=== PATIENT | female | born 1995 | race Two or more races ===

== ENCOUNTER 2019-05-05 09:51 | Outpatient (CLI) | payer OTHER | END 2019-05-05 10:01 | disposition home or self-care (01) | LOC: LAB 09:51 | DX: Z13.6 Encounter for screening for cardiovascular disorders (principal); Z00.00 Encounter for general adult medical examination without abnormal findings ==

== ENCOUNTER 2019-05-15 13:49 | Outpatient (CLI) | payer OTHER | END 2019-05-15 13:55 | disposition home or self-care (01) | LOC: LAB 13:49 | DX: D69.6 Thrombocytopenia, unspecified (principal) ==

== ENCOUNTER 2019-08-20 23:14 | Emergency (ER) | payer OTHER ==
[~2019-08-20] VITALS: Ht 170.2 cm; Wt 57.6 kg
[2019-08-21] MEDS ORDERED: DOLOGESIC 500-1 EACH PO (04:50)
[2019-08-21] MEDS ORDERED: LEVSIN/SL0.125 MG SL (04:50)
== END 2019-08-21 04:59 | disposition home or self-care (01) ==
LOC: ER 23:14
DX: R10.33 Periumbilical pain (principal); M94.0 Chondrocostal junction syndrome [Tietze]

== ENCOUNTER 2020-03-29 07:10 | Emergency (ER) | payer OTHER ==
[~2020-03-29] VITALS: Ht 152.4 cm; Wt 55.3 kg
[~2020-03-29 07:10] MED LIST: DOLOGESIC 500-1 EACH PO; LEVSIN/SL0.125 MG SL
[2020-03-29] MEDS ORDERED: PEPCID AC20 MG PO (11:43)
[2020-03-29] MEDS ORDERED: ZITHROMAX500 MG PO (11:43)
[2020-03-29] MEDS ORDERED: INTESTINEX680 M1 PO (11:43)
== END 2020-03-29 13:17 | disposition home or self-care (01) ==
LOC: ER 07:10
DX: R19.7 Diarrhea, unspecified (principal); B96.0 Mycoplasma pneumoniae [M. pneumoniae] as the cause of diseases classified elsewhere; Z03.818 Encounter for observation for suspected exposure to other biological agents ruled out

== ENCOUNTER 2023-09-24 10:20 | Outpatient (CLI) | payer OTHER ==
[~2023-09-24 10:20] MED LIST changes: +INTESTINEX680 M1 PO; +PEPCID AC20 MG PO; +ZITHROMAX500 MG PO
[2023-09-24 11:05] LABS: HEMATOCRIT 38.2 % (36.0-45.00); HEMOGLOBIN 12.7 g/dL (12.0-15.00); MEAN CELL VOLUME 81.2 fL (80.00-100.00); MEAN CORPUSCULAR HGB CONC 33.3 g/dl (32.0-36.0); PLATELET COUNT 179 K/uL (150-450); RED BLOOD COUNT 4.71 M/uL (4.00-6.00); RED CELL DISTRIBUTION WIDTH 12.9 % (11.5-14.5)
[2023-09-24 12:09] LABS: ALBUMIN 4.2 gm/dL (3.4-5.0); BILIRUBIN TOTAL 0.63 mg/dL (0.3-1.2); CALCIUM 9.4 mg/dL (8.5-10.1); CHOL HDL RATIO 2.8 (0-5.0); CREATININE SERUM 0.84 mg/dL (0.55-1.02); GFR 82.61; GLOBULINA 3.7 G/DL (2.4-3.5); POTASSIUM 4.2 mEq/L (3.5-5.1); T4 FREE 1.08 NG/ML (0.76-1.46); TOTAL PROTEIN 7.9 gm/dL (6.4-8.2); TSH 1.51 uIU/mL (0.358-3.74)
== END 2023-09-24 10:29 | disposition home or self-care (01) ==
LOC: LAB 10:20
PROVIDERS: ATTEND Internal Medicine
DX: D64.9 Anemia, unspecified (principal); R10.9 Unspecified abdominal pain; E03.9 Hypothyroidism, unspecified; E78.5 Hyperlipidemia, unspecified; R80.9 Proteinuria, unspecified; E11.9 Type 2 diabetes mellitus without complications

== ENCOUNTER 2023-11-30 12:30 | Outpatient (CLI) | payer OTHER ==
[2023-11-30 13:07] LABS: HEMATOCRIT 36.7 % (36.0-45.00); HEMOGLOBIN 12.3 g/dL (12.0-15.00); MEAN CELL VOLUME 80.7 fL (80.00-100.00); MEAN CORPUSCULAR HGB CONC 33.4 g/dl (32.0-36.0); PLATELET COUNT 168 K/uL (150-450); RED BLOOD COUNT 4.55 M/uL (4.00-6.00); RED CELL DISTRIBUTION WIDTH 14.2 % (11.5-14.5)
[2023-11-30 14:04] LABS: ALBUMIN 4.4 gm/dL (3.4-5.0); BILIRUBIN TOTAL 0.73 mg/dL (0.3-1.2); CALCIUM 9.5 mg/dL (8.5-10.1); CREATININE SERUM 0.74 mg/dL (0.55-1.02); GFR 94.86; GLOBULINA 3.7 G/DL (2.4-3.5); POTASSIUM 3.83 mEq/L (3.5-5.1); T4 FREE 1.03 NG/ML (0.76-1.46); TOTAL PROTEIN 8.1 gm/dL (6.4-8.2); TSH 0.77 uIU/mL (0.358-3.74)
[2023-12-02 12:24] LABS: VITAMIN D3 25 HYDROXY 57.04 ng/ml (30-120)
== END 2023-11-30 12:53 | disposition home or self-care (01) ==
LOC: LAB 12:30
PROVIDERS: ATTEND Internal Medicine
DX: N95.1 Menopausal and female climacteric states (principal); E03.8 Other specified hypothyroidism; E53.8 Deficiency of other specified B group vitamins; E55.9 Vitamin D deficiency, unspecified; I10 Essential (primary) hypertension

== ENCOUNTER 2023-12-10 07:59 | Outpatient (CLI) | payer OTHER | END 2023-12-10 08:07 | disposition home or self-care (01) | LOC: SONOGRAMA 07:59 | PROVIDERS: ATTEND Internal Medicine | DX: E04.2 Nontoxic multinodular goiter (principal) ==